=== PATIENT | male | born 1940 | race Caucasian/White ===

== ENCOUNTER 2016-05-13 10:17 | Observation (INO) | payer MEDICARE, BC ==
[~2016-05-13] VITALS: Ht 177.8 cm; Wt 101.6 kg
[2016-05-13] VITALS (7 sets, daily range): BP systolic 106–124; BP diastolic 73–89; PULSE 58–89; RESP 16; TEMP 97.4–97.8; O2SAT 94–98
[2016-05-13] MEDS ORDERED: AMPICILLIN-SULBACTAM INJ 3 GM VIAL ONE (10:47)
[2016-05-13] MEDS ORDERED: SODIUM CHLORIDE 0.9% INJ 100 ML ONE (10:48)
[2016-05-13] MEDS ORDERED: CYMB60CA PO (10:56)
[2016-05-13] MEDS ORDERED: OMEP40CA2 PO (10:56)
[2016-05-13] MEDS ORDERED: ZOLP10TA3 PO (10:56)
[2016-05-13] MEDS ORDERED: ARIP1TAB11 PO (10:56)
[2016-05-13] MEDS ORDERED: LACTATED RINGER'S 1000 ML INJ 1,000 ML ONE (11:07)
[2016-05-13] MEDS ORDERED: INSULIN HUMAN REGULAR 1,000 UNITS/10 ML VIAL SQ PRN (11:15)
[2016-05-13] MEDS ORDERED: METOPROLOL TARTRATE 25 MG TAB PO PRN (11:15)
[2016-05-13] MEDS ORDERED: AMPICILLIN/SULBAC 3 GM/NS 100 ML IV SCH ×2 (11:15)
[2016-05-13] MEDS ORDERED: SODIUM CHLORID 0.9% 500 ML IV SCH (11:15)
[2016-05-13] MEDS ORDERED: LACTATED RINGER'S 1000 ML IV SCH (11:15)
[2016-05-13] MEDS ORDERED: PROPOFOL 200 MG/20 ML AMP IV ONE (12:00)
[2016-05-13] MEDS ORDERED: NEOSTIGMINE METHYLSULFATE 10 MG/10 ML VIAL IV PUSH ONE (12:00)
[2016-05-13] MEDS ORDERED: PHENYLEPH/NS 1000 MCG/10 ML SYR IV ONE (12:00)
[2016-05-13] MEDS ORDERED: ONDANSETRON HCL 4 MG/2 ML VIAL IV PUSH ONE (12:00)
[2016-05-13] MEDS ORDERED: LIDOCAINE 1%/EPINEPHrine 1:100,000 SOLN 30 ML VIAL INFIL ONE (12:28)
[2016-05-13] MEDS ORDERED: OXYMETAZOLINE HCL 0.05% 15 ML NASAL SPRAY NASAL ONE (12:28)
[2016-05-13] MEDS ORDERED: BACITRACIN TOP OINT 15 GM TUBE TOP ONE (12:46)
[2016-05-13] MEDS ORDERED: DO NOT ADM ANY ANTICOAGULANT DRUGS XX PRN (13:14)
[2016-05-13] MEDS ORDERED: fentaNYL CITRATE 250 MCG/5 ML AMP ONE (13:19)
[2016-05-13] MEDS ORDERED: ONDANSETRON HCL 4 MG/2 ML VIAL IV PUSH PRN (14:45)
[2016-05-13] MEDS ORDERED: LACTATED RINGER'S 1000 ML INJ 1,000 ML IV SCH (15:00)
[2016-05-13] MEDS: AMPICILLIN/SULBAC 1500 MG/NS 100 ML IV SCH ×2 (17:44)
[2016-05-13] MEDS: ACETAMINOPHEN/HYDROcodone 325 MG/5 MG TAB PO PRN ×2 (17:52→23:01)
--- NOTE | 2016-05-13 22:26 | EKG ---
Date Performed: 05/13/2016 Time Performed: 10:53:52 PTAGE: 75 years EKG: Sinus rhythm NORMAL ECG NO PREVIOUS TRACING DOCTOR: Yanick Guthrie Interpretating Date/Time 05/13/2016 22:23:48
[2016-05-14 01:00] VITALS: BP 109/72; PULSE 73; RESP 16; TEMP 96.5; O2SAT 94
[2016-05-14] MEDS: AMPICILLIN/SULBAC 1500 MG/NS 100 ML IV SCH ×4 (02:41→08:16)
[2016-05-14] MEDS: ACETAMINOPHEN/HYDROcodone 325 MG/5 MG TAB PO PRN ×2 (03:05→10:39)
[2016-05-14 04:00] VITALS: BP 116/76; PULSE 80; RESP 16; TEMP 97.4; O2SAT 94
[2016-05-14 07:50] VITALS: O2SAT 96
[2016-05-14 08:00] VITALS: BP 115/73; PULSE 76; RESP 20; TEMP 96.1; O2SAT 97
--- NOTE | 2016-05-22 07:30 | MP ---
cc: SUNITA ROTH M.D. DATE OF SURGERY 05/13/[address] Sunita roth PREOPERATIVE DIAGNOSIS 1. Nasal airway obstruction 2. Nasal septal deviation 3. Hypertrophy of inferior turbinates. POSTOPERATIVE DIAGNOSIS 1. Nasal airway obstruction 2. Nasal septal deviation 3. Hypertrophy of inferior turbinates. OPERATION PERFORMED 1. Open repair nasal septal fracture. 2. Bilateral submucosal resection of inferior turbinates INDICATIONS Documented in the history and physical. DESCRIPTION OF OPERATION The patient was taken to OR #8 and placed in the supine position. Following induction of general anesthesia and intubation, the nose was packed bilaterally with cotton pledgets saturated in 0.05% Oxymetazoline and the nasal septum and inferior turbinates were injected with a total of 8 mL of 1% Xylocaine with epinephrine 1:1000. He was then prepped and draped for surgery. The nasal packing was removed and a hemitransfixion incision was made in the left nasal vestibule. Through this incision, the mucosa of septum was elevated bilaterally approximately 2 cm as far as the junction of the bony and cartilaginous septum. This revealed a comminuted fracture of the anterior quadrangular cartilage. This was long healed. A cumulative area of 2 x 2.5 cm was removed preserving 1.5 cm dorsal and caudal cartilaginous struts. This was done in a piecemeal fashion using a Andrew elevator and Dileep-Preston forceps. When this was completed, the mucosa was elevated from the bony septum and the maxillary crest and these were removed using the Babb-Preston forceps and a 6-mm Roberto chisel. The incision was closed using a running suture of 4-0 chromic and the mucosal layers of septum were approximated to each other with a quilting stitch of 4-0 plain gut. The inferior turbinates were fractured out medially and stab incisions were made along the inferior surfaces and through these incisions, the submucosal soft tissue was reduced using a curette and preserving the conchal bone. The incision was then cauterized using the suction Bovie at 35 [address]. The remnants of the inferior turbinates were then we lateralized to the lateral nasal wall. The nose was then packed with Merocel tampons coated in bacitracin ointment and the procedure was terminated. The patient was reversed from anesthesia and taken to recovery in good condition. No complications. Blood loss 100 mL. MD PARMJIT Chao/JEREMIAH /7:50 AM /7:22 AM
== END 2016-05-14 10:44 | disposition home or self-care (01) ==
LOC: HSDC 10:17 → HSDI 14:09 → HOCB 14:09
PROVIDERS: ADMIT Otolaryngology; ATTEND Otolaryngology
DX: J34.2 Deviated nasal septum (principal); J34.3 Hypertrophy of nasal turbinates; Z01.810 Encounter for preprocedural cardiovascular examination
CPT/HCPCS: 00160; 21336; 30140; 93005; 94762; G0378; J0295; J2370; J2405; J2710; J3010; J7120